=== PATIENT | female | born 1995 | race African-American/Black ===

== ENCOUNTER 2021-06-28 13:31 | Outpatient (CLI) | payer BC ==
[2021-06-29 03:28] LABS: SARS-CoV-2 PCR by NAA Not Detected (NotDetected)
== END 2021-06-28 13:32 | disposition home or self-care (01) ==
LOC: CSHLAB 13:31
PROVIDERS: ATTEND Internal Medicine Gastroenterology
DX: Z20.822 Contact with and (suspected) exposure to COVID-19 (principal); R10.9 Unspecified abdominal pain; K59.00 Constipation, unspecified
CPT/HCPCS: U0003; U0005

== ENCOUNTER 2023-05-06 23:57 | Day surgery (SDC) | payer BC ==
[2023-05-07 00:24] VITALS: BMI 20.9
[2023-05-07] MEDS ORDERED: hydrALAZINE 20 MG/ML VIAL SLOW IVP PRN (00:38)
== END 2023-05-07 02:54 | disposition home or self-care (01) ==
LOC: CSHLD/OP 23:57
PROVIDERS: ATTEND Family Medicine
DX: O47.03 False labor before 37 completed weeks of gestation, third trimester (principal); O36.8130 Decreased fetal movements, third trimester, not applicable or unspecified; Z3A.34 34 weeks gestation of pregnancy
CPT/HCPCS: 76819; 99282

== ENCOUNTER 2023-06-25 18:00 | Inpatient (IN) | payer BC, OTHER ==
[~2023-06-25 18:00] MED LIST: Bupivacaine 0.25% HCL 30 ML VIAL ONE; HYDROcodone/Acetaminophen 5/325 mg Tablet PO PRN; Ibuprofen 800 MG TAB PO PRN; Lidocaine 1% (PF) 30 ML VIAL SC PRN; Methylergonovine 0.2 MG/ML VIAL IM PRN; Misoprostol 100 MCG TAB VAG SCH; Misoprostol 200 MCG TAB PR PRN; Ondansetron PF 4 MG/2 ML Vial IVP PRN; Oxytocin 30 units/NS 500 ML 500 ML IV SCH; Promethazine HCl 25 MG/ML VIAL IM PRN; ePHEDrine Sulfate 50 MG/10 ML VIAL ONE; hydrALAZINE 20 MG/ML VIAL SLOW IVP PRN
[2023-06-25 19:52] VITALS: BMI 23.6
[2023-06-25] MEDS ORDERED: Labetalol HCl 100 MG/20 ML VIAL SLOW IVP PRN ×2 (21:08)
[2023-06-25] MEDS ORDERED: hydrALAZINE 20 MG/ML VIAL SLOW IVP PRN (21:08)
[2023-06-25] MEDS ORDERED: Lorazepam 2 MG/ML VIAL SLOW IVP PRN (21:08)
[2023-06-25] MEDS ORDERED: Calcium Gluc 4.6 MEQ/10 ML (100 MG/ML) SLOW IVP PRN (21:08)
[2023-06-25] MEDS: Magnesium Sulfate 20 gm/500 ml 20 GM/500 ML BAG ONE (21:10)
[2023-06-25] MEDS: hydrALAZINE 20 MG/ML VIAL ONE (21:10)
[2023-06-25 21:33] LABS: ALT (SGPT) 14 U/L (8-55); AST (SGOT) 28 U/L (5-34); Albumin 4.2 g/dL (3.5-5.0); Alkaline Phosphatase 288 U/L (40-110); Anion Gap 15 mmol/L (10-20); BUN (Urea Nitrogen) 6 mg/dL (7.0-18.7); Bilirubin, Total 0.3 mg/dL (0.2-1.2); Calc. Creatinine Clearance 118 mL/min (70-130); Calcium 10.3 mg/dL (7.8-10.44); Carbon Dioxide 18 mmol/L (22-29); Chloride 107 mmol/L (98-107); Estimated GFR 122; Globulin 3.7 g/dL (2.4-3.5); Glucose 66 mg/dL (70-105); Potassium 4.2 mmol/L (3.5-5.1); Protein, Total 7.9 g/dL (6.0-8.3); Sodium 136 mmol/L (136-145)
[2023-06-25 22:34] LABS: Creatinine, Urine Less than 20.00 mg/dL (47-110); Protein, Urine Random Quant Less than 10 mg/dL (1-14)
[2023-06-25 23:02] LABS: Hemoglobin 13.2 g/dL (12.0-15.5); Mean Corpuscular HGB CONC 34.7 g/dL (32.0-36.0); Mean Corpuscular Hemoglobin 30.7 pg (27.0-33.0); Mean Corpuscular Volume 88.4 fl (81.6-98.3); Mean Platelet Volume 12.5 fl (7.4-10.4); Platelet Count 120 10x3/uL (150-450)
[2023-06-25 23:24] LABS: Syphilis Antibody Nonreactive (Nonreactive); Syphilis Antibody Index 0.05 S/CO (<1.00 Non-Reactive)
[2023-06-25 23:27] LABS: HBSAg Index 0.23 S/CO (0-0.99); HIV (1/2) Antibody/Antigen Non-Reactive (NonReactive); HIV 1/2 INDEX 0.12 S/CO (<1.00); Hep B Surf Ag - L&D Non-Reactive S/CO (NonReactive)
[2023-06-25] MEDS: Misoprostol 100 MCG TAB PO SCH (23:32)
[2023-06-26 05:17] LABS: Critical Call Chemistry NUR.LHA@0517; Magnesium 5.5 mg/dL (1.6-2.6)
[2023-06-26] MEDS: Magnesium Sulfate 20 gm/500 ml 20 GM/500 ML BAG IVPB SCH (05:56)
[2023-06-26] MEDS: fentaNYL 50 mcg/mL 1 mL Vial SLOW IVP PRN (06:00)
[2023-06-26] MEDS: fentaNYL/Ropivacaine Epidural 100 ML ONE (10:48)
[2023-06-26] MEDS ORDERED: Ondansetron PF 4 MG/2 ML Vial IVP PRN ×4 (11:37→23:57)
[2023-06-26] MEDS ORDERED: Lactated Ringer's 500 ML IV PRN (11:37)
[2023-06-26] MEDS ORDERED: ePHEDrine Sulfate 50 MG/10 ML VIAL SLOW IVP PRN (11:37)
[2023-06-26] MEDS ORDERED: Promethazine HCl 25 MG/ML VIAL IM PRN ×3 (11:37→23:57)
[2023-06-26] MEDS ORDERED: Naloxone HCl 0.4 mg/ml Vial IVP PRN ×4 (11:37→23:57)
[2023-06-26] MEDS ORDERED: Moisturizing Cream (Eucerin) 113 GM JAR TOP PRN ×2 (11:37→23:57)
[2023-06-26] MEDS ORDERED: diphenhydrAMINE 50 MG/ML VIAL IVP PRN ×3 (11:37→23:57)
[2023-06-26] MEDS ORDERED: Acetaminophen 325 MG TAB PO PRN (11:37)
[2023-06-26] MEDS ORDERED: Communication Order-Pharmacy FS SCH ×3 (11:45→23:45)
[2023-06-26] MEDS: Acetaminophen 500 MG TAB PO PRN (13:24)
[2023-06-26] MEDS: Lidocaine 1% (PF) 30 ML VIAL ONE (18:51)
[2023-06-26 19:15] LABS: Magnesium 7.4 mg/dL (1.6-2.6)
[2023-06-26 19:21] LABS: Lavender RECEIVED; Red RECEIVED
[2023-06-26] MEDS: fentaNYL 2 mcg/Ropivacaine 0.2% Epidural 100 ML CADD EPIDURAL SCH (20:17)
[2023-06-26] MEDS: Carboprost 250 MCG/ML AMP ONE (22:50)
[2023-06-26 23:04] LABS: Analyzer IN Cardio CS NICU; RapidComm Collect By CBN
[2023-06-26 23:05] LABS: Analyzer IN Cardio CS NICU; RapidComm Collect By CBN; pH (Cord, venous) 7.318 (7.250-7.350)
[2023-06-26] MEDS ORDERED: Lanolin Ointment 7 GM TUBE TOP PRN (23:33)
[2023-06-26] MEDS ORDERED: diphenhydrAMINE 25 MG CAP PO PRN ×2 (23:33→23:57)
[2023-06-26] MEDS ORDERED: hydrALAZINE 20 MG/ML VIAL SLOW IVP PRN (23:33)
[2023-06-26] MEDS ORDERED: Misoprostol 200 MCG TAB PR PRN (23:33)
[2023-06-26] MEDS ORDERED: Simethicone Chewable 80 MG TAB PO PRN (23:33)
[2023-06-26] MEDS ORDERED: Ketorolac Tromethamine 30 MG (1 mL) VIAL IVP SCH (23:45)
[2023-06-26] MEDS ORDERED: diphenhydrAMINE 50 MG/ML VIAL IM PRN (23:57)
[2023-06-26] MEDS ORDERED: Naloxone HCl 0.4 mg/ml Vial IV PRN ×2 (23:57)
[2023-06-26] MEDS ORDERED: Promethazine HCl 25 MG SUPP PR PRN (23:57)
[2023-06-26] MEDS ORDERED: FENTANYL 500 MCG/10 ML VIAL 2,000 MCG in Sodium Chloride 0.9% 60 ML IV PRN (23:57)
[2023-06-26] MEDS ORDERED: fentaNYL 50 mcg/mL 1 mL Vial SLOW IVP PRN (23:57)
[2023-06-26] MEDS ORDERED: Morphine 4 MG/ML VIAL SLOW IVP PRN (23:57)
[2023-06-26] MEDS ORDERED: Meperidine HCl/PF 25 MG (1 mL) VIAL SLOW IVP PRN (23:57)
[2023-06-27] MEDS: FENTANYL 500 MCG/10 ML VIAL 1,000 MCG in Sodium Chloride 0.9% 30 ML IV PRN (00:39)
[2023-06-27] MEDS: Lactated Ringer's 1,000 ML IV SCH (03:17)
[2023-06-27] MEDS: Misoprostol 200 MCG TAB ONE (03:20)
[2023-06-27] MEDS: fentaNYL 50 mcg/mL 1 mL Vial ONE ×2 (03:21→03:22)
[2023-06-27] MEDS: Lidocaine 2% MPF 10 ML AMP (For Epidural Use) ONE (03:21)
[2023-06-27] MEDS: Azithromycin 500 MG VIAL ONE (03:21)
[2023-06-27] MEDS: PROPOFOL 20 ML ONE (03:21)
[2023-06-27] MEDS: CEFAZOLIN 2 GM VIAL ONE (03:21)
[2023-06-27] MEDS: Tranexamic Acid 1,000 MG/10 ML VIAL ONE (03:22)
[2023-06-27] MEDS: Phenylephrine 10 MG/ML VIAL ONE (03:22)
[2023-06-27] MEDS: Oxytocin 10 UNITS/ML VIAL ONE (03:22)
[2023-06-27] MEDS: Morphine PF 10 MG/10 ML VIAL ONE (03:22)
[2023-06-27] MEDS: Ondansetron PF 4 MG/2 ML Vial ONE (03:22)
[2023-06-27 04:23] LABS: Hematocrit 33.9 % (34.9-44.5); Mean Corpuscular HGB CONC 35.4 g/dL (32.0-36.0); Mean Corpuscular Hemoglobin 30.8 pg (27.0-33.0); Mean Corpuscular Volume 86.9 fl (81.6-98.3); Mean Platelet Volume 12.3 fl (7.4-10.4); Platelet Count 123 10x3/uL (150-450); RBC Distribution Width 14.1 % (11.5-14.5); White Blood Cell (WBC) Count 20.4 10x3/uL (3.5-10.5)
[2023-06-27] MEDS ORDERED: Ibuprofen 800 MG TAB PO SCH (06:00)
[2023-06-27 10:04] LABS: D-Dimer Test 1.43 mcg/mL (0.19-0.50); INR-International Normal Ratio 0.9; Prothrombin Time 9.9 sec (9.5-12.1)
[2023-06-27 22:31] LABS: #Basophils 0.1 10x3/uL (0.0-0.2); #Monocytes 0.9 10x3/uL (0.0-1.1); #Neutrophils 11.5 10x3/uL (1.5-8.4); %Basophils 0.4 % (0.0-2.0); %Eosinophils 0.3 % (0.0-6.0); %Lymphocytes 10.1 % (18.0-47.0); %Monocytes 6.2 % (0.0-10.0); %Neutrophils 82.5 % (40.0-75.0); Hematocrit 31.7 % (34.9-44.5); Hemoglobin 10.9 g/dL (12.0-15.5); Mean Corpuscular HGB CONC 34.4 g/dL (32.0-36.0); Mean Corpuscular Hemoglobin 30.2 pg (27.0-33.0); Mean Corpuscular Volume 87.8 fl (81.6-98.3); Mean Platelet Volume 11.6 fl (7.4-10.4); Platelet Count 125 10x3/uL (150-450); RBC Distribution Width 14.4 % (11.5-14.5); Red Blood Cell (RBC) Count 3.61 10x6/uL (3.90-5.03); White Blood Cell (WBC) Count 13.9 10x3/uL (3.5-10.5)
[2023-06-27 22:52] LABS: ALT (SGPT) 10 U/L (8-55); AST (SGOT) 21 U/L (5-34); Albumin 2.7 g/dL (3.5-5.0); Alkaline Phosphatase 156 U/L (40-110); Anion Gap 10 mmol/L (10-20); BUN (Urea Nitrogen) 6 mg/dL (7.0-18.7); Bilirubin, Total 0.3 mg/dL (0.2-1.2); Calc. Creatinine Clearance 124 mL/min (70-130); Calcium 7.7 mg/dL (7.8-10.44); Carbon Dioxide 23 mmol/L (22-29); Chloride 108 mmol/L (98-107); Estimated GFR 124; Globulin 2.4 g/dL (2.4-3.5); Glucose 79 mg/dL (70-105); Potassium 4.6 mmol/L (3.5-5.1); Protein, Total 5.1 g/dL (6.0-8.3); Sodium 136 mmol/L (136-145)
[2023-06-27] MEDS: Prenatal Vitamin 1 TAB PO SCH (23:09)
[2023-06-27] MEDS: Docusate 100 MG CAP PO SCH (23:09)
[2023-06-28] MEDS: Polyethylene Glycol 3350 17 GM Packet PO SCH (08:18)
[2023-06-28] MEDS: HYDROcodone/Acetaminophen 5/325 mg Tablet PO PRN (09:21)
[2023-06-28] MEDS: Boostrix 0.5 ML (Tdap) VIAL (>/=7 yrs of age) IM ONE (19:00)
[2023-06-28] MEDS: Ketorolac Tromethamine 30 MG (1 mL) VIAL IVP PRN (23:11)
[2023-06-29] MEDS: Ibuprofen 800 MG TAB PO SCH (05:27)
[2023-06-29 12:41] VITALS: BP 136/72; TEMP 99.3
[2023-06-29] MEDS: HYDROcodone/Acetaminophen 5/325 mg Tablet PO PRN (13:15)
== END 2023-06-29 17:20 | disposition home or self-care (01) | DRG 787 ==
LOC: CSHLD 19:09 → CSHPP 06-28 00:45
PROVIDERS: ADMIT Obstetrics & Gynecology; ATTEND Obstetrics & Gynecology
PROC: 10907ZC Drainage of Amniotic Fluid, Therapeutic from Products of Conception, Via Natural or Artificial Opening (ICD-10-PCS; principal; 2023-06-25)
PROC: 10D00Z1 Extraction of Products of Conception, Low, Open Approach (ICD-10-PCS; 2023-06-25)
PROC: 3E033XZ Introduction of Vasopressor into Peripheral Vein, Percutaneous Approach (ICD-10-PCS; 2023-06-25)
DX: O14.14 Severe pre-eclampsia complicating childbirth (principal); O99.12 Other diseases of the blood and blood-forming organs and certain disorders involving the immune mechanism complicating childbirth; O48.0 Post-term pregnancy; Z3A.41 41 weeks gestation of pregnancy; Z37.0 Single live birth; O76 Abnormality in fetal heart rate and rhythm complicating labor and delivery; O32.4XX0 Maternal care for high head at term, not applicable or unspecified
CPT/HCPCS: 36415; 36416; 51702; 80053; 82570; 82805; 83735; 84156; 85027; 85049; 85300; 85362; 85384; 85610; 85730; 86780; 86850; 86900; 86901; 87340; 87389; J0360; J0665; J1885; J2001; J2274; J2371; J2405; J2590; J2704; J3010; J3475; J3490

== ENCOUNTER 2023-07-14 15:15 | Outpatient (CLI) | payer BC, OTHER | END 2023-07-14 15:16 | disposition home or self-care (01) | LOC: CSHULT 15:15 | PROVIDERS: ATTEND Student in an Organized Health Care Education/Training Program | DX: N83.9 Noninflammatory disorder of ovary, fallopian tube and broad ligament, unspecified (principal) | CPT/HCPCS: 76856 ==